=== PATIENT | male | born 2005 | race Caucasian/White ===

== ENCOUNTER 2023-01-16 07:33 | Day surgery (SDC) | payer OTHER ==
[2023-01-09 12:36] VITALS: BMI 19.3
[2023-01-16] MEDS ORDERED: BUPIVACAINE HCL/EPINEPHRINE/PF 30 ML VIAL IJ ONE (08:53)
[2023-01-16] MEDS ORDERED: NITROGLYCERIN 2% OINTMENT - 1GM PACKET TD ONE (08:53)
[2023-01-16] MEDS ORDERED: BACITRACIN ZINC 15 GM TUBE TOPICAL OINTMENT ONE (08:53)
[2023-01-16] MEDS ORDERED: MIDAZOLAM HCL 2 MG/2 ML SINGLE DOSE VIAL ONE (09:28)
[2023-01-16] MEDS ORDERED: NEOSTIGMINE METHYLSULFATE 0.5 MG/1 ML - 10 ML MDV ONE (10:43)
[2023-01-16] MEDS ORDERED: ROCURONIUM BROMIDE 50 MG/5 ML SYRINGE ONE (10:44)
[2023-01-16] MEDS ORDERED: GLYCOPYRROLATE 0.2 MG/1 ML VIAL ONE (10:44)
[2023-01-16] MEDS ORDERED: LIDOCAINE HCL/PF 2% SDV 5ML VIAL ONE (10:44)
[2023-01-16] MEDS ORDERED: DEXAMETHASONE SOD PHOSPHATE 4 MG/1 ML VIAL ONE (10:44)
[2023-01-16] MEDS ORDERED: ceFAZolin SODIUM 1 GM VIAL ONE (10:44)
[2023-01-16] MEDS ORDERED: ONDANSETRON 4 MG/2 ML VIAL ONE ×2 (10:44→14:16)
[2023-01-16] MEDS ORDERED: PROPOFOL 20 ML ONE (10:58)
[2023-01-16] MEDS ORDERED: FENTANYL CITRATE/PF 50 MCG/ML VIAL ONE (11:26)
[2023-01-16] MEDS ORDERED: oxyCODONE HCL 5 MG TABLET PO PRN (11:28)
[2023-01-16] MEDS ORDERED: ACETAMINOPHEN 1000 MG/100 ML BAG IVPB ONE (11:29)
[2023-01-16] MEDS ORDERED: ACETAMINOPHEN INJECTION 100 ML IVPB ONE (11:29)
[2023-01-16] MEDS ORDERED: LACTATED RINGERS SOLUTION 1,000 ML IV SCH (11:30)
[2023-01-16] MEDS: ONDANSETRON 4 MG/2 ML VIAL IVPUSH PRN ×2 (12:06→14:15)
[2023-01-16 17:24] VITALS: BP 117/66; PULSE 77; RESP 20; TEMP 97.7
== END 2023-01-16 15:15 | disposition home or self-care (01) ==
LOC: FASU 07:33
PROVIDERS: ATTEND Plastic Surgery
PROC: 09QK0ZZ Repair Nasal Mucosa and Soft Tissue, Open Approach (ICD-10-PCS; principal; 2023-01-16 10:07)
DX: Q30.8 Other congenital malformations of nose (principal)
CPT/HCPCS: 94760